=== PATIENT | female | born 1990 | race Asian ===

== ENCOUNTER 2019-08-02 10:47 | Inpatient (IN) | payer MEDICAID ==
[~2019-08-02] VITALS: Ht 157.5 cm; Wt 68.0 kg
[2019-08-02] MEDS: OXYTOCIN 20 UNITS in LACTATED RINGERS 1,000 ML IV SCH ×2 (03:15→23:37)
[2019-08-02] MEDS ORDERED: LACTATED RINGERS 1,000 ML IV SCH (10:55)
[2019-08-02] MEDS ORDERED: FERR325E14 PO (11:00)
[2019-08-02] MEDS ORDERED: PNV11TAB3 PO (11:00)
[2019-08-02] MEDS ORDERED: CLINDAMYCIN 900 MG in DEXTROSE 5% 100 ML IV SCH (11:07)
[2019-08-02 11:33] LABS: BASOPHILS % (AUTO) 0.3 % (0.0-2.0); EOSINOPHILS % (AUTO) 0.5 % (0.0-4.0); HEMATOCRIT 35.7 % (36-48); HEMOGLOBIN 11.7 g/dL (12.0-16.0); LYMPHOCYTES # (AUTO) 1.3 K/uL (2.5-16.5); LYMPHOCYTES % (AUTO) 12.7 % (20.5-51.1); MEAN CORPUSCULAR HEMOGLOBIN 32 pg (27-31); MEAN CORPUSCULAR HGB CONC 33 g/dL (33-37); MEAN CORPUSCULAR VOLUME 96.9 fL (80-94); MONOCYTES # (AUTO) 0.4 K/uL (0.8-1.0); MONOCYTES % (AUTO) 4.1 % (1.7-9.3); NEUTROPHILS # (AUTO) 8.6 K/uL (1.8-7.7); NEUTROPHILS % (AUTO) 82.4 % (42.2-75.2); PLATELET COUNT (AUTO) 249 K/uL (140-450); RED BLOOD CELL COUNT(AUTO) 3.68 MIL/uL (4.20-5.40); RED CELL DISTRIBUTION WIDTH 13.7 % (11.6-13.7); WHITE BLOOD COUNT (AUTO) 10.4 K/uL (4.8-10.8)
[2019-08-02 11:55] LABS: ALBUMIN 2.5 g/dL (3.4-5.0); ANION GAP 13.1 (8-16); CARBON DIOXIDE 26.7 mmol/L (21-32); CREATININE 0.4 mg/dL (0.6-1.3); POTASSIUM 4.8 mmol/L (3.5-5.1); TOTAL BILIRUBIN 0.5 mg/dL (0.0-1.0)
[2019-08-02 12:10] VITALS: BP 112/64
[2019-08-02] MEDS ORDERED: OXYTOCIN 10 UNITS in LACTATED RINGERS 1,000 ML IV SCH (13:01)
[2019-08-02] MEDS ORDERED: TEMAZEPAM 15 MG CAP PO PRN (13:05)
[2019-08-02] MEDS ORDERED: BUPRENORPHINE 0.3 MG/ML VIAL IV PRN (13:05)
[2019-08-02] MEDS ORDERED: KETOROLAC 30 MG/ML VIAL IVP PRN (13:05)
[2019-08-02] MEDS ORDERED: HYDROcodone/APAP 5/325 MG 1 TAB TAB PO PRN (13:05)
[2019-08-02] MEDS ORDERED: IBUPROFEN 800 MG TAB PO PRN (13:05)
[2019-08-02] MEDS ORDERED: MAGNESIUM CITRATE 300 ML BTL PO SCH (13:05)
[2019-08-02] MEDS ORDERED: MIDAZOLAM 2 MG/2 ML VIAL ONE (13:10)
[2019-08-02] MEDS ORDERED: MORPHINE PRES FREE 10 MG/10 ML AMP IV ONE (13:11)
[2019-08-02] MEDS ORDERED: ONDANSETRON 4 MG/2 ML VIAL IVP PRN ×2 (13:35)
[2019-08-02] MEDS ORDERED: MEPERIDINE 25 MG/ML SYR IVP PRN (13:35)
[2019-08-02] MEDS ORDERED: NALOXONE 0.4 MG/ML VIAL IVP PRN ×3 (13:35)
[2019-08-02] MEDS ORDERED: diphenhydrAMINE 50 MG/ML VIAL IVP PRN ×2 (13:35)
[2019-08-02] MEDS ORDERED: NALBUPHINE 10 MG/ML AMP IVP PRN (13:35)
[2019-08-02] MEDS ORDERED: HYDROmorphone 1 MG/ML AMP IVP PRN (13:35)
[2019-08-02] MEDS ORDERED: OXYTOCIN 20 UNITS/LR PREMIX 1,000 ML IV ONE ×2 (14:00→22:10)
[2019-08-02 14:01] LABS: APPEARANCE,URINE CLEAR (CLEAR); BILIRUBIN,URINE NEGATIVE (NEGATIVE); BLOOD, URINE NEGATIVE (NEGATIVE); COLOR,URINE YELLOW (YELLOW); LEUKOCYTE ESTERASE ,URINE NEGATIVE (NEGATIVE); NITRITE, URINE NEGATIVE (NEGATIVE); UGLUCOSE NEGATIVE (NEGATIVE)
[2019-08-02] MEDS: KETOROLAC 30 MG/ML VIAL IM/IVP SCH ×2 (15:04→21:07)
[2019-08-03] MEDS ORDERED: OXYTOCIN 20 UNITS/LR PREMIX 1,000 ML IV ONE (04:05)
[2019-08-03] MEDS: KETOROLAC 30 MG/ML VIAL IM/IVP SCH (04:09)
[2019-08-03 06:23] LABS: BASOPHILS % (AUTO) 0.3 % (0.0-2.0); EOSINOPHILS # (AUTO) 0.1 K/uL (0-0.4); EOSINOPHILS % (AUTO) 0.5 % (0.0-4.0); HEMOGLOBIN 11.7 g/dL (12.0-16.0); LYMPHOCYTES # (AUTO) 1.8 K/uL (2.5-16.5); LYMPHOCYTES % (AUTO) 11.6 % (20.5-51.1); MEAN CORPUSCULAR HEMOGLOBIN 32 pg (27-31); MEAN CORPUSCULAR HGB CONC 34 g/dL (33-37); MEAN CORPUSCULAR VOLUME 96.5 fL (80-94); MONOCYTES # (AUTO) 0.5 K/uL (0.8-1.0); MONOCYTES % (AUTO) 3.3 % (1.7-9.3); NEUTROPHILS # (AUTO) 13.2 K/uL (1.8-7.7); NEUTROPHILS % (AUTO) 84.3 % (42.2-75.2); PLATELET COUNT (AUTO) 269 K/uL (140-450); RED BLOOD CELL COUNT(AUTO) 3.62 MIL/uL (4.20-5.40); RED CELL DISTRIBUTION WIDTH 13.8 % (11.6-13.7); WHITE BLOOD COUNT (AUTO) 15.6 K/uL (4.8-10.8)
[2019-08-03] MEDS: OXYTOCIN 20 UNITS in LACTATED RINGERS 1,000 ML IV SCH (07:06)
--- NOTE | 2019-08-03 08:04 | NUR ---
PATIENT HAS BEEN SCREENED AND CATEGORIZED LOW NUTRITION RISK. PATIENT WILL BE SEEN WITHIN 7 DAYS OF ADMISSION. 08/08/[address]
[2019-08-03] MEDS ORDERED: BISACODYL 10 MG SUPP RC SCH (09:00)
[2019-08-03] MEDS ORDERED: SODIUM PHOSPHATE 118 ML ENEM RC SCH (09:00)
[2019-08-03] MEDS: SIMETHICONE 80 MG TAB.CHEW PO PRN (09:29)
[2019-08-03] MEDS: BISACODYL 5 MG TABEC PO SCH ×2 (09:29→20:47)
[2019-08-03] MEDS: CALCIUM POLYCARBOPHIL 625 MG TAB PO SCH ×3 (09:30→20:46)
[2019-08-03] MEDS: DOCUSATE SOD/SENNA 50/8.6 MG 1 TAB PO SCH (20:47)
[2019-08-03] MEDS: SENNA 8.6 MG TAB PO SCH (20:47)
[2019-08-03] MEDS: oxyCODONE/APAP 5/325 MG 1 TAB TAB PO PRN (23:02)
[2019-08-04] MEDS: oxyCODONE/APAP 5/325 MG 1 TAB TAB PO PRN ×4 (07:11→20:22)
[2019-08-04] MEDS: CALCIUM POLYCARBOPHIL 625 MG TAB PO SCH ×3 (09:25→20:23)
[2019-08-04] MEDS: SIMETHICONE 80 MG TAB.CHEW PO PRN (09:25)
[2019-08-04] MEDS: BISACODYL 5 MG TABEC PO SCH ×2 (09:25→20:24)
[2019-08-04] MEDS: SENNA 8.6 MG TAB PO SCH (20:24)
[2019-08-04] MEDS: DOCUSATE SOD/SENNA 50/8.6 MG 1 TAB PO SCH (20:25)
[2019-08-05] MEDS: oxyCODONE/APAP 5/325 MG 1 TAB TAB PO PRN ×3 (01:19→09:10)
== END 2019-08-05 14:00 | disposition home or self-care (01) | DRG 540 ==
LOC: MLD 10:52 → MFCC 15:10
PROVIDERS: ADMIT Obstetrics & Gynecology; ATTEND Obstetrics & Gynecology
PROC: 10D00Z1 Extraction of Products of Conception, Low, Open Approach (ICD-10-PCS; principal; 2019-08-02 13:00)
PROC: 3E0234Z Introduction of Serum, Toxoid and Vaccine into Muscle, Percutaneous Approach (ICD-10-PCS; 2019-08-03)
DX: O34.211 Maternal care for low transverse scar from previous cesarean delivery (principal); O69.81X0 Labor and delivery complicated by cord around neck, without compression, not applicable or unspecified; Z23 Encounter for immunization; Z37.0 Single live birth; Z3A.37 37 weeks gestation of pregnancy
CPT/HCPCS: 36415; 80053; 81003; 85025; 86592; 86886; 86900; 86901; 90715; J1885; J2250; J2270; J2590; J3490; J7060; J7120